=== PATIENT | male | born 1990 | race Caucasian/White ===

== ENCOUNTER 2019-06-29 16:56 | Emergency (ER) | payer OTHER ==
[~2019-06-29] VITALS: Ht 182.9 cm; Wt 74.8 kg
[2019-06-29] MEDS ORDERED: XANAX1 MG PO (17:03)
[2019-06-29] MEDS ORDERED: SEROQUEL 100 M100 MG PO (17:03)
[2019-06-29 17:09] VITALS: BP 140/73
== END 2019-06-29 17:09 ==
LOC: M.ERS 16:56
DX: F41.0 Panic disorder [episodic paroxysmal anxiety] (principal)